=== PATIENT | female | born 1960 | race Caucasian/White ===

== ENCOUNTER 2020-05-30 14:15 | Outpatient (REF) | payer OTHER, SELFPAY ==
--- NOTE | 2020-05-30 14:20 | MM_ITS ---
EXAMINATION: MM SCREENING DIGITAL BREAST TOMOSYNTHESIS, BILATERAL CLINICAL INFORMATION: Screening. Asymptomatic. The lifetime risk of breast cancer based on the Tyrer-Cuzick Model is 7%. COMPARISON: Mammography: 05/18/2019, 05/12/2018, 05/07/2017 TECHNIQUE: Digital breast tomosynthesis is performed in both the craniocaudal and mediolateral oblique views along with computer-aided detection (CAD). Synthesized 2D images are generated from the tomosynthesis. FINDINGS: There are scattered areas of fibroglandular density (ACR BI-RADS breast composition Category b). There are no significant masses, abnormal calcifications, or other abnormalities. Parenchymal pattern is similar to prior exams. No developing density. No significant changes. MM/MM tomosynthesis screening BI IMPRESSION: No significant changes from prior studies. ASSESSMENT: BI-RADS 1: Negative RECOMMENDATION: Routine annual mammography screening. This patient's information was entered into a reminder system with a target due date for their next mammogram.
== END 2020-05-30 14:16 | disposition home or self-care (01) ==
LOC: HO.MAMMO 14:15
PROVIDERS: Visit Provider Internal Medicine
DX: Z12.31 Encounter for screening mammogram for malignant neoplasm of breast (principal)
CPT/HCPCS: 77063; 77067

== ENCOUNTER 2020-09-21 10:53 | Outpatient (REF) | payer OTHER, SELFPAY ==
[2020-09-24 01:07] LABS: HPV mRNA E6/E7 rflx Not Detected (Not Detected)
== END 2020-09-21 10:54 | disposition home or self-care (01) ==
LOC: HO.LAB 10:53
PROVIDERS: PCP Internal Medicine; Visit Provider Advanced Practice Midwife
DX: Z01.419 Encounter for gynecological examination (general) (routine) without abnormal findings (principal); Z11.51 Encounter for screening for human papillomavirus (HPV); N95.0 Postmenopausal bleeding
CPT/HCPCS: 87624; 88142

== ENCOUNTER 2020-09-27 14:47 | Outpatient (REF) | payer OTHER, SELFPAY ==
--- NOTE | ~2020-09-27 | US_ITS ---
EXAMINATION: PELVIC ULTRASOUND CLINICAL INFORMATION: Postmenopausal bleeding COMPARISON: None TECHNIQUE: Transabdominal and transvaginal pelvic ultrasound was performed. Transvaginal exam was performed for better visualization of the uterus and ovaries. FINDINGS: The uterus is retroverted and measures 6.7 x 3.4 x 4.3 cm in dimension. No focal uterine lesion is seen. Endometrial thickness is normal measuring 0.3 cm. There is a nabothian cyst in the cervix. The ovaries are normal-appearing. The right ovary measures 1.8 x 0.6 x 1.2 cm and the left ovary measures 2.7 x 0.9 x 1.1 cm. There is no fluid in the pelvis. US/US pelvic and transvaginal IMPRESSION: Unremarkable exam.
== END 2020-09-27 14:48 | disposition home or self-care (01) ==
LOC: HO.US 14:47
PROVIDERS: PCP Internal Medicine; Visit Provider Advanced Practice Midwife
DX: N95.0 Postmenopausal bleeding (principal)
CPT/HCPCS: 76830; 76856

== ENCOUNTER → 2020-10-11 09:53 | Outpatient (BNVA) | payer OTHER, SELFPAY | PROVIDERS: PCP Internal Medicine; Visit Provider Advanced Practice Midwife | DX: N93.9 Abnormal uterine and vaginal bleeding, unspecified (principal) | CPT/HCPCS: 58100 ==

== ENCOUNTER 2020-12-01 07:04 | Outpatient (REF) | payer OTHER, SELFPAY ==
[2020-12-01 11:28] LABS: Hematocrit 41.1 % (37-47); Hemoglobin 13.3 g/dl (12.0-16.0)
[2020-12-01 11:50] LABS: Alanine Aminotransferase 22 U/L (0-31); Alkaline Phosphatase 54 U/L (39-117); Anion Gap 11 (12-20); Aspartate Amino Transferase 21 U/L (5-31); Bilirubin Total 0.7 mg/dL (0.0-1.0); Blood Urea Nitrogen 19 mg/dL (9-16); Calcium 8.8 mg/dL (8.4-10.2); Carbon Dioxide 26 mmol/L (22-29); Chloride 109 mmol/L (96-108); Cholesterol 205 mg/dL; Estimated Glomerular Filt Rate > 60; Glucose Fasting 89 mg/dL (60-99); HDL Cholesterol 42 mg/dL; LDL Cholesterol Calculated 146 mg/dl; Potassium 4.3 mmol/L (3.3-5.1); Sodium 142 mmol/L (135-145); Total Protein 6.3 g/dL (6.5-8.0); Triglycerides 88 mg/dL
[2020-12-01 12:12] LABS: TSH reflex Free T4 0.55 uIU/mL (0.32-4.0)
== END 2020-12-01 07:05 | disposition home or self-care (01) ==
LOC: HO.HMGCLDS 07:04
PROVIDERS: PCP Internal Medicine; Visit Provider Internal Medicine
DX: E03.8 Other specified hypothyroidism (principal); E78.9 Disorder of lipoprotein metabolism, unspecified
CPT/HCPCS: 36415; 80053; 80061; 84443; 85014; 85018

== ENCOUNTER 2021-06-13 14:20 | Outpatient (REF) | payer OTHER, SELFPAY ==
--- NOTE | ~2021-06-13 | MM_ITS ---
EXAMINATION: MM SCREENING DIGITAL BREAST TOMOSYNTHESIS, BILATERAL CLINICAL INFORMATION: Screening. Asymptomatic. The lifetime risk of breast cancer based on the Tyrer-Cuzick Model is 13%. COMPARISON: Mammography: 05/30/2020, 05/18/2019, 05/12/2018 TECHNIQUE: Digital breast tomosynthesis is performed in both the craniocaudal and mediolateral oblique views along with computer-aided detection (CAD). Synthesized 2D images are generated from the tomosynthesis. FINDINGS: There are scattered areas of fibroglandular density (ACR BI-RADS breast composition Category b). There are no significant masses, abnormal calcifications, or other abnormalities. MM/MM tomosynthesis screening BI IMPRESSION: No mammographic evidence of malignancy. ASSESSMENT: BI-RADS 1: Negative RECOMMENDATION: Routine annual mammography screening. This patient's information was entered into a reminder system with a target due date for their next mammogram.
== END 2021-06-13 14:21 | disposition home or self-care (01) ==
LOC: HO.MAMMO 14:20
PROVIDERS: Visit Provider Internal Medicine
DX: Z12.31 Encounter for screening mammogram for malignant neoplasm of breast (principal)
CPT/HCPCS: 77063; 77067

== ENCOUNTER 2021-07-18 07:04 | Outpatient (REF) | payer OTHER, SELFPAY ==
[2021-07-18 12:16] LABS: TSH reflex Free T4 0.61 uIU/mL (0.32-4.0)
[2021-07-18 12:25] LABS: Alanine Aminotransferase 20 U/L (0-31); Albumin Level 4.1 g/dL (3.5-5.0); Alkaline Phosphatase 55 U/L (39-117); Anion Gap 9 (12-20); Aspartate Amino Transferase 21 U/L (5-31); Bilirubin Total 0.8 mg/dL (0.0-1.0); Blood Urea Nitrogen 18 mg/dL (9-16); Calcium 9.3 mg/dL (8.4-10.2); Carbon Dioxide 29 mmol/L (22-29); Chloride 107 mmol/L (96-108); Cholesterol 207 mg/dL; Estimated Glomerular Filt Rate > 60; Glucose Random 95 mg/dL (60-115); HDL Cholesterol 42 mg/dL; LDL Cholesterol Calculated 145 mg/dl; Potassium 4.8 mmol/L (3.3-5.1); Sodium 140 mmol/L (135-145); Total Protein 6.6 g/dL (6.5-8.0); Triglycerides 104 mg/dL
== END 2021-07-18 07:05 | disposition home or self-care (01) ==
LOC: HO.HMGCLDS 07:04
PROVIDERS: Visit Provider Internal Medicine
DX: E03.9 Hypothyroidism, unspecified (principal); E78.9 Disorder of lipoprotein metabolism, unspecified
CPT/HCPCS: 36415; 80053; 80061; 84443

== ENCOUNTER → 2021-10-13 15:04 | Outpatient (BNVA) | payer OTHER, SELFPAY | PROVIDERS: Visit Provider Advanced Practice Midwife | DX: Z13.89 Encounter for screening for other disorder (principal) ==

== ENCOUNTER 2022-06-19 14:20 | Outpatient (REF) | payer OTHER, SELFPAY ==
--- NOTE | ~2022-06-19 | MM_ITS ---
EXAMINATION: MM SCREENING DIGITAL BREAST TOMOSYNTHESIS, BILATERAL CLINICAL INFORMATION: Screening. Asymptomatic. The lifetime risk of breast cancer based on the Tyrer-Cuzick Model is 13%. COMPARISON: Mammography: 06/13/2021, 05/30/2020, 05/18/2019 TECHNIQUE: Digital breast tomosynthesis is performed in both the craniocaudal and mediolateral oblique views along with computer-aided detection (CAD). Synthesized 2D images are generated from the tomosynthesis. FINDINGS: There are scattered areas of fibroglandular density (ACR BI-RADS breast composition Category b). There are no significant masses, abnormal calcifications, or other abnormalities. Parenchymal pattern is similar to prior studies and there is no developing density or architectural abnormality. The axilla and skin contours are unremarkable. No significant changes. MM/MM tomosynthesis screening BI IMPRESSION: No mammographic evidence of malignancy. ASSESSMENT: BI-RADS 1: Negative RECOMMENDATION: Routine annual mammography screening. This patient's information was entered into a reminder system with a target due date for their next mammogram.
== END 2022-06-19 14:21 | disposition home or self-care (01) ==
LOC: HO.MAMMO 14:20
PROVIDERS: PCP Internal Medicine; Visit Provider Advanced Practice Midwife
DX: Z12.31 Encounter for screening mammogram for malignant neoplasm of breast (principal)
CPT/HCPCS: 77063; 77067

== ENCOUNTER 2022-08-10 10:32 | Outpatient (REF) | payer OTHER, SELFPAY ==
[2022-08-10 11:26] LABS: MANUAL DIFF FLAG NO
[2022-08-10 11:50] LABS: Basophils Percent Auto 0.7 % (0-2); Eosinophils Absolute Auto 0.1 X10*3/uL (0.0-0.4); Eosinophils Percent Auto 1.9 % (0-4); Hematocrit 42.8 % (37.0-47.0); Hemoglobin 14.2 g/dl (12.0-16.0); Imm Gran Abs Auto 0.02 X10*3/uL (0.00-0.03); Imm Gran Pct Auto 0.3 % (0.0-0.4); Lymphocytes Absolute Auto 1.5 X10*3/uL (1.2-4.9); Lymphocytes Percent Auto 26.1 % (20-40); Mean Corpuscular HGB Conc 33.2 g/dl (31.0-35.0); Mean Corpuscular Hemoglobin 30.3 pg (27.0-33.0); Mean Corpuscular Volume 91.3 fL (80.0-98.0); Mean Platelet Volume 10.4 fL (9.4-12.3); Monocytes Absolute Auto 0.3 X10*3/uL (0.1-1.2); Monocytes Percent Auto 5.4 % (2-11); Neutrophils Absolute Auto 3.8 x10*3/uL (2.0-8.3); Neutrophils Percent Auto 65.6 % (45-73); Platelet Count 264 X10*3/uL (160-400); Red Blood Count 4.69 X10*6/uL (4.20-5.50); Red Cell Distribution Width 13.4 % (11.0-16.0); White Blood Count 5.7 X10*3/uL (4.8-10.8)
[2022-08-10 12:19] LABS: Alanine Aminotransferase 24 U/L (0-31); Albumin Level 4.2 g/dL (3.5-5.0); Alkaline Phosphatase 63 U/L (39-117); Anion Gap 8 (12-20); Aspartate Amino Transferase 23 U/L (5-31); Blood Urea Nitrogen 11 mg/dL (9-16); Calcium 8.9 mg/dL (8.4-10.2); Carbon Dioxide 27 mmol/L (22-29); Chloride 108 mmol/L (96-108); Estimated Glomerular Filt Rate > 60; Glucose Random 88 mg/dL (60-115); Potassium 4.2 mmol/L (3.3-5.1); Sodium 139 mmol/L (135-145); Total Protein 6.7 g/dL (6.5-8.0)
[2022-08-11 13:44] LABS: LDL Cholesterol Direct 150 mg/dL (<100)
== END 2022-08-10 10:33 | disposition home or self-care (01) ==
LOC: HO.HMGCLDS 10:32
PROVIDERS: PCP Internal Medicine; Visit Provider Internal Medicine
DX: Z00.01 Encounter for general adult medical examination with abnormal findings (principal); E03.8 Other specified hypothyroidism; M06.9 Rheumatoid arthritis, unspecified; B00.1 Herpesviral vesicular dermatitis
CPT/HCPCS: 36415; 80053; 83721; 84443; 85025

== ENCOUNTER → 2022-10-19 07:58 | Outpatient (BNVA) | payer OTHER, SELFPAY | PROVIDERS: PCP Internal Medicine; Visit Provider Advanced Practice Midwife ==

== ENCOUNTER 2023-06-24 14:09 | Outpatient (REF) | payer OTHER, SELFPAY | END 2023-06-24 14:10 | disposition home or self-care (01) | LOC: HO.MAMMO 14:09 | PROVIDERS: PCP Internal Medicine; Visit Provider Internal Medicine | DX: Z12.31 Encounter for screening mammogram for malignant neoplasm of breast (principal) | CPT/HCPCS: 77063; 77067 ==

== ENCOUNTER → 2023-06-24 14:30 | Outpatient (BNV) | payer OTHER, SELFPAY | PROVIDERS: PCP Internal Medicine; Visit Provider Radiology Diagnostic Radiology | DX: Z12.31 Encounter for screening mammogram for malignant neoplasm of breast (principal) | CPT/HCPCS: 77063; 77067 ==

== ENCOUNTER 2023-08-16 07:56 | Outpatient (AMB) | payer OTHER, SELFPAY ==
[2023-08-16 08:00] VITALS: BP 120/72; PULSE 75; O2SAT 96; BMI 24.8
--- NOTE | 2023-08-16 08:00 | MHC.PC.OV ---
Vital Signs 08/16/23 08:00 Height 5 ft 5 in Weight 149 lb BMI 24.8 BP 120/72 Blood Pressure Location Rt brachial Position Sitting Pulse 75 Pulse Source Pulse Oximeter Pulse Oximetry (%) 96 Oxygen Delivery Method Room Air Intake Visit Reasons: PE Intake Note: Pt is here today for PE. Allergies penicillin V Allergy (Unknown, Verified 08/16/23 08:02) rash celecoxib [Celebrex] Adverse Reaction (Unknown, Verified 08/16/23 08:02) heart palpitations Medication List - Last Reconciled 08/16/23 by Krys Montoya MD folic acid 1 mg PO DAILY levothyroxine 88 mcg PO QAM 90 days methotrexate sodium 20 mg PO QWEEK Proair Digihaler 90 mcg/actuation (albuterol sulfate) 1 inh inhalation Q4-6H PRN NS tofacitinib ER 11 mg PO DAILY valacyclovir 500 mg PO DAILY 90 days Tobacco use date assessed: 08/16/23 Dental Screening Dental Screen Date: 08/16/23 Did you have a dental visit in the last 12 months?: Yes Did you have a dental problem in the last 6 months where you did not have access to dental care?: No Was dental information given to patient?: Patient has dentist HPI PE HPI Details Patient is a 63-year-old female came in today for a physical examination. patient have an OBGYN, breast exams through them. Colonoscopy was January of 2020 [address] [facility] Dr[address] Titus, next will be 2029 Mammogram is up-to-date Lipid disorder: LDL was 150 last time checked, she is due for thyroid test I have added lipids as well Patient have urinary incontinence she had a sling procedure done which worked initially but then it stopped working, medications are not helping. Actinic keratoses: Patient have a entry level and she goes once a year for follow-up. Rheumatoid arthritis treatment by Dr. Hanks had [facility] Left ear tympanic membrane slightly dull, patient does have allergies seems like she has developed fluid behind tympanic membrane I would recommend to start antihistamine Follow-up 6 months for hypothyroidism [facility] Medical History Rheumatoid arthritis Hypothyroid Surgical History Status post creation of urethral sling by suprapubic approach Family History Sister Breast cancer Social History Housing: House Alcohol intake: current Patient Tobacco Use Status: Never used Tobacco e-Cigarette/Vaping Use: Never Used Current occupational status: employed 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 Massimo Montgomery, Dayna Anderson, Jermaine Mcdaniel and colleagues, with an educational aj from [employer]. Review of Systems Const Denies chills, Denies fever(s) and Denies headache(s) Eyes Denies blurry vision ENT Denies headache(s), Denies nasal discharge, Denies nasal obstruction, Denies odynophagia and Denies sinus pain Card Denies chest pain at rest and Denies chest pain with activity Resp Denies cough and Denies hemoptysis GI Denies diarrhea, Denies odynophagia, Denies vomiting and Denies hematemesis Reports as per HPI Musc Denies abnormal gait Skin/Breast Reports as per HPI Neuro Denies Neuro-related abnormal movements, Denies Abnormal speech present, Denies abnormal gait, Denies headache(s) and Denies Sensory deficit (Neuro) Psych Denies mood swings and Denies paranoia Endo Reports as per HPI Iglesia/Lymph Reports as per HPI Aller/Immun Reports as per HPI Physical exam (Primary Care) Vital Signs: Last Vital Signs Pulse 75 08/16/23 08:00 BP 120/72 08/16/23 08:00 Pulse Ox 96 08/16/23 08:00 Oxygen Delivery Method Room Air 08/16/23 08:00 BMI result Body Mass Index 24.8 Tobacco/Smoking Status: Tobacco use Status Tobacco use date assessed 08/16/23 08/16/23 08:03 Patient Tobacco Use Status Never used Tobacco 08/16/23 08:03 e-Cigarette/Vaping Use Never Used 08/16/23 08:03 Thrive Assessment: Date of Thrive Assessment Date Thrive assessed 08/10/22 08/16/23 08:03 Const General: cooperative, comfortable and no acute distress Orientation/consciousness: patient oriented x3 HENMT Other: Left ear with slight dullness to light reflex Head: Yes normocephalic and Yes atraumatic Eyes General: appearance normal, both eyes and all related structures Pupils: Equal, round and reactive pupils present EOM: EOMs intact bilaterally Neck Neck: Yes supple and No lymphadenopathy Thyroid: Thyroid normal Lymphatic: no lymphadenopathy noted Resp Effort & Inspection: normal respiratory effort and able to speak in complete sentences Auscultation: clear to auscultation bilaterally Cardio Heart sounds: S1 normal heart sound present and S2 normal heart sound present GI Palpation (GI): Soft to palpation and nontender Auscultation: normal bowel sounds General: Yes no CVA tenderness Back/Spine/Pelvis Back: no CVA tenderness Skin General skin exam: elasticity normal and turgor normal Neuro General: patient oriented x3 and gait normal Cranial nerves: Yes Equal, round and reactive pupils present Speech: No Abnormal speech present Sensory Exam: No Sensory deficit (Neuro) Coordination: tandem gait normal and Romberg test negative Extrem General: Yes normal exam except as noted and No edema Assessment and Plan Assessment & Plan (1) Encounter for general adult medical examination with abnormal findings: Code(s): Z00.01 - Encounter for general adult medical examination with abnormal findings (2) Lipid disorder: Code(s): E78.9 - Disorder of lipoprotein metabolism, unspecified (3) Other specified hypothyroidism: Code(s): E03.8 - Other specified hypothyroidism (4) Urine incontinence: Code(s): R32 - Unspecified urinary incontinence Qualifiers: Urinary Incontinence type: unspecified incontinence Qualified Code(s): R32 - Unspecified urinary incontinence (5) Actinic keratosis: Code(s): L57.0 - Actinic keratosis (6) Rheumatoid arthritis: Code(s): M06.9 - Rheumatoid arthritis, unspecified Qualifiers: Rheumatoid arthritis location: multiple sites Rheumatoid factor presence: with rheumatoid factor Qualified Code(s): M05.79 - Rheumatoid arthritis with rheumatoid factor of multiple sites without organ or systems involvement (7) Intermittent asthma: Code(s): J45.20 - Mild intermittent asthma, uncomplicated Qualifiers: Asthma complication type: uncomplicated Asthma severity: mild Qualified Code(s): J45.20 - Mild intermittent asthma, uncomplicated Plan Patient is a 63-year-old female came in today for a physical examination. patient have an OBGYN, breast exams through them. Colonoscopy was January of 2020 at [facility] Dr. Titus, next will be 2029 Mammogram is up-to-date Lipid disorder: LDL was 150 last time checked, she is due for thyroid test I have added lipids as well Patient have urinary incontinence she had a sling procedure done which worked initially but then it stopped working, medications are not helping. Actinic keratoses: Patient have a entry level and she goes once a year for follow-up. Rheumatoid arthritis treatment by Dr. Hanks had rheumatoid arthritis center Left ear tympanic membrane slightly dull, patient does have allergies seems like she has developed fluid behind tympanic membrane I would recommend to start antihistamine Follow-up 6 months for hypothyroidism Orders: Orders Lipid Panel Today E78.9 - Disorder of lipoprotein metabolism, unspecified TSH reflex Free T4 Today E03.8 - Other specified hypothyroidism, E78.9 - Disorder of lipoprotein metabolism, unspecified, J45.20 - Mild intermittent asthma, uncomplicated, L57.0 - Actinic keratosis, M06.9 - Rheumatoid arthritis, unspecified, R32 - Unspecified urinary incontinence, Z00.01 - Encounter for general adult medical examination with abnormal findings Liver Panel Today E78.9 - Disorder of lipoprotein metabolism, unspecified Coding Level of Care Code Est Pt Prev Care 40-64y(73462) Diagnoses Encounter for general adult medical examination with abnormal findings Z00.01 Lipid disorder E78.9 Other specified hypothyroidism E03.8 Urinary incontinence, unspecified type R32 Urinary Incontinence type: unspecified incontinence Actinic keratosis L57.0 Rheumatoid arthritis involving multiple sites with positive rheumatoid factor M05.79 Rheumatoid arthritis location: multiple sites Rheumatoid factor presence: with rheumatoid factor Mild intermittent asthma without complication J45.20 Asthma complication type: uncomplicated Asthma severity: mild
== END 2023-08-16 08:18 | disposition home or self-care (01) ==
PROVIDERS: Visit Provider Internal Medicine
DX: Z00.00 Encounter for general adult medical examination without abnormal findings (principal); M05.79 Rheumatoid arthritis with rheumatoid factor of multiple sites without organ or systems involvement; E78.9 Disorder of lipoprotein metabolism, unspecified; E03.8 Other specified hypothyroidism; R32 Unspecified urinary incontinence; L57.0 Actinic keratosis; J45.20 Mild intermittent asthma, uncomplicated
CPT/HCPCS: 99396

== ENCOUNTER 2023-08-16 08:19 | Outpatient (REF) | payer OTHER, SELFPAY ==
[2023-08-16 11:45] LABS: Alanine Aminotransferase 28 U/L (0-31); Alkaline Phosphatase 74 U/L (39-117); Aspartate Amino Transferase 21 U/L (5-31); Bilirubin Direct 0.1 mg/dL (0.0-0.5); Bilirubin Total 0.5 mg/dL (0.0-1.0); Cholesterol 209 mg/dL (<200); HDL Cholesterol 42 mg/dL (>40); LDL Cholesterol Calculated 146 mg/dL (<100); Triglycerides 108 mg/dL (<150)
[2023-08-16 12:04] LABS: TSH reflex Free T4 4.14 uIU/mL (0.32-4.0)
[2023-08-16 12:46] LABS: Free T4 (Free Thyroxine) 1.02 ng/dL (0.71-1.85)
== END 2023-08-16 08:20 | disposition home or self-care (01) ==
LOC: HO.HMGCLDS 08:19
PROVIDERS: PCP Internal Medicine; Visit Provider Internal Medicine
DX: Z00.01 Encounter for general adult medical examination with abnormal findings (principal); E03.8 Other specified hypothyroidism; R32 Unspecified urinary incontinence; L57.0 Actinic keratosis; M06.9 Rheumatoid arthritis, unspecified; J45.20 Mild intermittent asthma, uncomplicated; E78.9 Disorder of lipoprotein metabolism, unspecified
CPT/HCPCS: 36415; 80061; 80076; 84439; 84443

== ENCOUNTER → 2023-08-16 10:04 | Outpatient (BNVA) | payer OTHER, SELFPAY | PROVIDERS: PCP Internal Medicine; Visit Provider Internal Medicine | DX: S80.02XA Contusion of left knee, initial encounter (principal); W01.0XXA Fall on same level from slipping, tripping and stumbling without subsequent striking against object, initial encounter | CPT/HCPCS: 99203 ==

== ENCOUNTER 2023-10-25 07:53 | Outpatient (AMB) | payer OTHER, SELFPAY ==
--- NOTE | 2023-10-25 07:58 | A.OFFVIS_ITS ---
Vital Signs 10/25/23 07:59 Height 5 ft 5 in Weight 147 lb 11.355 oz BMI 24.6 BP 118/70 Intake Visit Reasons: DEPUTY CHIEF MAGISTRATE annual exam Thread Reeler Required: No Information Interpreted: non-clinical & clinical Irrigation Specialist: Irrigation Specialist Present (Beatrice RAINEY) Accompanied by: Self / Same As Patient Allergies penicillin V Allergy (Unknown, Verified 10/25/23 08:03) rash celecoxib [Celebrex] Adverse Reaction (Unknown, Verified 10/25/23 08:03) heart palpitations Post menopausal: Yes HPI Comments Details: She is a postmenopausal woman presenting for her annual wire tinner examination. She is doing well with no concerns. Attempting to eat a healthy diet with calcium and vitamin D and stays active with exercise. Currently sexually active. Denies any irritation. Admits to vaginal dryness. Last pap smear; 2020. Last mammogram; 2023. Colonoscopy is UTD. Family history of breast cancer, sister. 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 Cognitive needs: No Hearing needs: No Vision needs: No Female Reproductive History Menstrual Age of Menarche: 16 Menopause type: natural Total pregnancies: 2 Full term: 2 Number of Living Children: 2 Date of last pap smear: 09/22/20 Date of Mammogram: 06/24/23 Review of Systems Const All systems reviewed & are unremarkable except as noted in HPI and below Reports as per HPI Eyes Reports no additional complaints ENT Reports no additional complaints Card Reports no additional complaints Resp Reports no additional complaints GI Reports as per HPI and Reports no additional complaints Reports as per HPI Musc Reports no additional complaints Skin/Breast Reports as per HPI Neuro Reports no additional complaints Psych Reports no additional complaints Endo Reports no additional complaints Iglesia/Lymph Reports no additional complaints Aller/Immun Reports no additional complaints Physical Exam Vital Signs: Last Vital Signs BP 118/70 10/25/23 07:59 BMI result Body Mass Index 24.6 Const General: cooperative, healthy appearing, no acute distress, well developed and alert Orientation/consciousness: patient oriented x3 HEENT Head: Yes normal to inspection Eyes General: appearance normal, both eyes and all related structures Neck Neck: Yes normal visual inspection Thyroid: Thyroid normal Chest Chest palpation & inspection: normal inspection of the chest and other (no puckering, dimpling, peau de orange, retraction, discharge, masses) Breast/axilla inspection: normal inspection of the breasts Breast/axilla palpation: normal palpation of the breasts Resp Effort & Inspection: normal respiratory effort GI Inspection: Yes normal to inspection Palpation (GI): Soft to palpation Rectal Exam - Female: deferred General: Yes bladder normal to palpation External Female Exam: normal external appearance and normal appearance of the urethra Speculum Exam - Vagina: normal appearance of the vagina, normal palpation, normal vaginal discharge and vagina atrophic Speculum Exam - Cervix: normal appearance of the cervix and normal palpation Bimanual exam- vagina & uterus: normal bimanual exam, normal palpation, uterine size normal, bladder normal to palpation, normal palpation and non-tender Bimanual Exam- Adnexa, other: no masses Skin General skin exam: no rashes or lesions noted Rashes: no rashes Neuro General: patient oriented x3 Cognition (Neuro): normal cognition Extrem General: Yes normal to inspection Psych Attitude: cooperative Thought process: Normal thought process present Assessment & Plan Assessment & Plan (1) Encounter for well woman exam with routine gynecological exam: Code(s): Z01.419 - Encounter for gynecological examination (general) (routine) without abnormal findings Category: Medical Plan Discussed: Current recommendations for pap smears per ASCCP guidelines. Breast awareness, periodic self breast exams and yearly mammogram. Maintain a healthy lifestyle, well balanced diet including Calcium 1,200 mg and Vitamin D 600 IU daily, and routine exercise. Replens moisturizer and lubricant. Follow up as needed for vaginal dryness concerns. Contact the office with any postmenopausal bleeding. Patient verbalizes understanding and agrees to the plan of care. She was given opportunity to ask questions and all questions were answered to the best of my ability. RTO in 1 year for annual wire tinner exam. This note is constructed using voice recognition software. While every effort has been made to ensure accuracy, ui developer with angular js errors may have been included. Coding Level of Care Code Est Pt Prev Care 40-64y(35458) Diagnoses Encounter for well woman exam with routine gynecological exam Z01.419
[2023-10-25 07:59] VITALS: BP 118/70; BMI 24.6
== END 2023-10-25 09:22 | disposition home or self-care (01) ==
PROVIDERS: Visit Provider Advanced Practice Midwife
DX: Z01.419 Encounter for gynecological examination (general) (routine) without abnormal findings (principal)
CPT/HCPCS: 99396

== ENCOUNTER → 2023-10-25 07:53 | Outpatient (BNVA) | payer OTHER, SELFPAY | PROVIDERS: Visit Provider Advanced Practice Midwife ==

== ENCOUNTER 2024-02-14 07:59 | Outpatient (REF) | payer OTHER, SELFPAY ==
[2024-02-14 09:59] LABS: MANUAL DIFF FLAG NO
[2024-02-14 10:10] LABS: Basophils Percent Auto 0.6 % (0-2); Eosinophils Absolute Auto 0.2 X10*3/uL (0.0-0.4); Eosinophils Percent Auto 3.4 % (0-4); Hematocrit 43.3 % (37.0-47.0); Hemoglobin 14.2 g/dl (12.0-16.0); Imm Gran Abs Auto 0.01 X10*3/uL (0.00-0.03); Imm Gran Pct Auto 0.2 % (0.0-0.4); Lymphocytes Absolute Auto 1.5 X10*3/uL (1.2-4.9); Lymphocytes Percent Auto 32.8 % (20-40); Mean Corpuscular HGB Conc 32.8 g/dl (31.0-35.0); Mean Corpuscular Hemoglobin 29.8 pg (27.0-33.0); Monocytes Absolute Auto 0.3 X10*3/uL (0.1-1.2); Monocytes Percent Auto 6.2 % (2-11); Neutrophils Absolute Auto 2.6 x10*3/uL (2.0-8.3); Neutrophils Percent Auto 56.8 % (45-73); Platelet Count 256 X10*3/uL (160-400); Red Blood Count 4.76 X10*6/uL (4.20-5.50); Red Cell Distribution Width 13.5 % (11.0-16.0); White Blood Count 4.7 X10*3/uL (4.8-10.8)
[2024-02-14 10:37] LABS: Alanine Aminotransferase 31 U/L (0-31); Alkaline Phosphatase 66 U/L (39-117); Anion Gap 8 (12-20); Aspartate Amino Transferase 29 U/L (5-31); Bilirubin Total 0.7 mg/dL (0.0-1.0); Blood Urea Nitrogen 14 mg/dL (9-16); Calcium 9.1 mg/dL (8.4-10.2); Carbon Dioxide 26 mmol/L (22-29); Chloride 110 mmol/L (96-108); Estimated Glomerular Filt Rate > 60; Glucose Random 107 mg/dL (60-115); Potassium 3.9 mmol/L (3.3-5.1); Sodium 140 mmol/L (135-145); Total Protein 6.9 g/dL (6.5-8.0)
[2024-02-14 10:54] LABS: Ferritin 111 ng/mL (10-250); TSH reflex Free T4 1.01 uIU/mL (0.32-4.0)
[2024-02-14 10:56] LABS: Vitamin B12 390 pg/mL (200-900)
[2024-02-16 10:33] LABS: LDL Cholesterol Direct 170 mg/dL (<100)
[2024-02-20 15:13] LABS: Vitamin D 25-OH, D2 5 ng/mL; Vitamin D 25-OH, D3 21 ng/mL; Vitamin D 25-OH, Total 26 ng/mL (30-100)
== END 2024-02-14 08:00 | disposition home or self-care (01) ==
LOC: HO.HMGCLDS 07:59
PROVIDERS: PCP Internal Medicine; Visit Provider Internal Medicine
DX: Z13.1 Encounter for screening for diabetes mellitus (principal); E03.8 Other specified hypothyroidism; E78.9 Disorder of lipoprotein metabolism, unspecified; R53.83 Other fatigue
CPT/HCPCS: 36415; 80053; 82306; 82607; 82728; 83721; 84443; 85025

== ENCOUNTER 2024-07-03 11:08 | Outpatient (REF) | payer OTHER, SELFPAY | END 2024-07-03 11:09 | disposition home or self-care (01) | LOC: HO.MAMMO 11:08 | PROVIDERS: PCP Internal Medicine; Visit Provider Internal Medicine | DX: Z12.31 Encounter for screening mammogram for malignant neoplasm of breast (principal) | CPT/HCPCS: 77063; 77067 ==

== ENCOUNTER 2024-08-21 07:54 | Outpatient (AMB) | payer OTHER, SELFPAY ==
[2024-08-21 08:10] VITALS: BP 114/76; PULSE 66; RESP 18; TEMP 36.8; O2SAT 96; BMI 23.5
--- NOTE | 2024-08-21 08:10 | A.OFFPC_ITS ---
Vital Signs 08/21/24 08:10 Height 5 ft 5 in Weight 141 lb BMI 23.5 BP 114/76 Blood Pressure Location Lt brachial Position Sitting Respiration 18 Pulse 66 Pulse Source Pulse Oximeter Temp 98.2 F Temp Source Oral Pulse Oximetry (%) 96 Oxygen Delivery Method Room Air Intake Visit Reasons: PE Allergies penicillin V Allergy (Unknown, Verified 08/21/24 08:12) rash cefdinir Allergy (Verified 08/21/24 08:12) Hives celecoxib [Celebrex] Adverse Reaction (Unknown, Verified 08/21/24 08:12) heart palpitations Medication List - Last Reconciled 08/21/24 by Krys Montoya MD folic acid 1 mg PO DAILY levothyroxine 88 mcg PO QAM 90 days methotrexate sodium 20 mg PO QWEEK Proair Digihaler 90 mcg/actuation (albuterol sulfate) 1 inh inhalation Q4-6H PRN NS tofacitinib ER 11 mg PO DAILY valacyclovir 500 mg PO DAILY 90 days Tobacco use date assessed: 08/21/24 Dental Screening Dental Screen Date: 08/21/24 Did you have a dental visit in the last 12 months?: Yes Did you have a dental problem in the last 6 months where you did not have access to dental care?: No Was dental information given to patient?: Patient has dentist HPI PE HPI Details History of Present Illness - The patient is a 64-year-old female pr esenting with a primary reason of physical exam and routine health maintenance. - Continues to manage rheumatoid arthrit is with unspecified current treatments under Dr. Hanks. - Reports persistently elevated choleste rol levels; LDL documented at 170 mg/dL. - The patient recognizes noncompliance w ith recommended vitamin D supplementation. - Developed bilateral ear infections las t May, with deafness in the left ear. Initial treatment with cefdinir resulted in an allergic reaction, amended with azithromycin therapy. - Reports residual eustachian tube dysfu nction, receiving antihistamine treatment for associated allergic rhinitis symptoms. - Normal mammogram confirmed in June; gynecological follow-up delayed, requiring rescheduling. - Reports a negative colonoscopy in 2019 ; follow-up is not due for 7 more years , performed by Dr. Titus Health Maintenance - Routine mammogram completed in June of this year; no abnormalities. - Scheduled gynecological visit overdue; last seen in October of previous year, requiring rescheduling. - Colonoscopy performed in 2020 at [facility], 10-year interval recommended given normal findings. By Dr. Titus - Recommendations for vitamin D and B12 supplementation discussed to address suboptimal levels. - repeat labs today [facility] Rheumatology under Dr. Hanks, [place]. - Gastroenterology follow-up pending, wi th prior colonoscopy administered by Dr. Titus. Patient Instructions - Continue antihistamine use for ear sym ptoms related to possible allergies. - Follow recommendations for vitamin D a nd B12 supplementation as advised. - Contact TRANSACTION MANAGER to schedule overdue sravanthi ointment. - Follow up on high cholesterol manageme nt and adhere to dietary guidelines provided. - Schedule and maintain routine [facility] appointments as per recommendations. Review of Systems - General: No fever no chills - Neurological: No headaches no dizzin ess - Ear nose throat: No sore throat no hearing difficulty no ear pain - Cardiovascular: No syncope, no chest pain, no palpitations - Gastrointestinal: No nausea vomiting or diarrhea - Endocrine: No polyuria polydipsia no heat intolerance - Genitourinary: No dysuria - Skin: No new complaints Physical Exam General: Cooperative, healthy appearing, comfortable, no acute distress Orientation: Patient oriented x3 Limitations: None Head: Normal to inspection Ears: Fluid present, popping and snapping, no infection Nose: Normal external nose present Face and sinus: Normal facial exam Eyes: Appearance normal, extraocular movement intact pupils reactive Neck: Normal visual inspection and supple Respiratory: Normal respiratory effort and able to speak in complete sentences. Clear to auscultation, no stridor Breast exam by OBGYN as per patient Cardiovascular: S1 and S2 GI: Normal to inspection. 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 1. Little interest or pleasure in doing things: not at all 2. Feeling down, depressed, or hopeless: not at all 3. Trouble falling or staying asleep, or sleeping too much: several days 4. Feeling tired or having little energy: several days 5. Poor appetite or overeating: several days 6. Feeling bad about yourself - or that you are a failure or have let yourself or your family down: not at all 7. Trouble concentrating on things, such as reading the newspaper or watching television: not at all 8. Moving or speaking so slowly that other people could have noticed. Or the opposite - being so fidgety or restless that you have been moving around a lot more than usual: not at all 9. Thoughts that you would be better off or of hurting yourself in some way: not at all Total score: 3 Depression Screening Interpretation: Negative Depression Screening Done: Yes 59022 - PHQ-9 Billing: Yes Source: Developed by Drs. Massimo Montgomery, Dayna Anderson, Jermaine Mcdaniel and colleagues, with an educational aj from [employer]. Thrive Questionnaire Date Thrive assessed: 08/21/24 I am a: Patient What is your living situation today?: I have a steady place to live Within the past 12 months, did the food you bought not last and you didn't have the money to get more?: Never true Within the past 12 months, did you worry whether your food would run out before you got money to buy more?: Never true Do you have trouble paying for medicines?: No Do you have trouble getting transportation to medical appointments?: No Do you have trouble paying your heating and electricity bill?: No Do you have trouble taking care of your child, family member or friend?: No Do you have trouble with day-to-day activities such as bathing, preparing meals, shopping, managing finances, etc.?: No Are you currently unemployed and looking for a job?: No Are you interested in more education?: No THRIVE Score: 0 AUDIT C Alcohol Use Questionnaire (AUDIT-C) 1. How often do you have a drink containing alcohol?: Never 3. How often do you have six or more drinks on one occasion?: Never Total Score: 0 COSTA-7 AMB Questionnaire COSTA-7 Date COSTA - 7 assessed: 08/21/24 Feeling nervous, anxious, or on edge: 0 = Not at all Not being able to stop or control worryin = Not at all Worrying too much about different things: 0 = Not at all Trouble relaxin = Not at all Being so restless that it is hard to sit still: 0 = Not at all Becoming easily annoyed or irritable: 0 = Not at all Feeling afraid as if something awful might happen: 0 = Not at all Total COSTA-7 score (0-4 normal; 5-9 mild; 10-14 moderate; 15-21 severe): 0 Source: Developed by Drs. Massimo Montgomery, Dayna Anderson, Jermaine Mcdaniel and colleagues, with an educational aj from [employer]. COSTA-7 Assessment Billing COSTA-7 Assessment Tool: COSTA-7 Assessment 91723 Physical exam (Primary Care) Vital Signs: Last Vital Signs Temp 98.2 F 08/21/24 08:10 Pulse 66 08/21/24 08:10 Resp 18 08/21/24 08:10 BP 114/76 08/21/24 08:10 Pulse Ox 96 08/21/24 08:10 Oxygen Delivery Method Room Air 08/21/24 08:10 BMI result Body Mass Index 23.5 Tobacco/Smoking Status: Tobacco use Status Tobacco use date assessed 08/21/24 08/21/24 08:17 Patient Tobacco Use Status Never used Tobacco 08/21/24 08:17 e-Cigarette/Vaping Use Never Used 08/21/24 08:17 PHQ-9: PHQ-9 Score PHQ-9: Total score 3 08/21/24 08:17 Depression Screening Interpretation: Negative Thrive Assessment: Date of Thrive Assessment Date Thrive assessed 08/21/24 08/21/24 08:17 Coding Level of Care Code Est Pt Level 3 (61696) Est Pt Prev Care 40-64y(06001) Diagnoses Encounter for general adult medical examination with abnormal findings Z00.01 Disorder of left eustachian tube H69.92 Laterality: left Rheumatoid arthritis involving multiple sites with positive rheumatoid factor M05.79 Rheumatoid arthritis location: multiple sites Rheumatoid factor presence: with rheumatoid factor Recurrent cold sores B00.1 Mild intermittent asthma without complication J45.20 Asthma complication type: uncomplicated Asthma severity: mild Lipid disorder E78.9 Other specified hypothyroidism E03.8 Additional Codes COSTA-7 Assessment Billing - COSTA-7 Assessment Tool: COSTA-7 Assessment 21599 ([id number]) PHQ-9 - 63689 - PHQ-9 Billing: Yes ([id number]) Assessment & Plan Assessment & Plan (1) Encounter for general adult medical examination with abnormal findings: Code(s): Z00.01 - Encounter for general adult medical examination with abnormal findings Category: Medical (2) Eustachian tube disorder: Code(s): H69.90 - Unspecified Eustachian tube disorder, unspecified ear Category: Medical Qualifiers: Laterality: left Qualified Code(s): H69.92 - Unspecified Eustachian tube disorder, left ear (3) Rheumatoid arthritis: Code(s): M06.9 - Rheumatoid arthritis, unspecified Category: Medical Qualifiers: Rheumatoid arthritis location: multiple sites Rheumatoid factor presence: with rheumatoid factor Qualified Code(s): M05.79 - Rheumatoid arthritis with rheumatoid factor of multiple sites without organ or systems involvement (4) Recurrent cold sores: Code(s): B00.1 - Herpesviral vesicular dermatitis Category: Medical (5) Intermittent asthma: Code(s): J45.20 - Mild intermittent asthma, uncomplicated Category: Medical Qualifiers: Asthma complication type: uncomplicated Asthma severity: mild Qualified Code(s): J45.20 - Mild intermittent asthma, uncomplicated (6) Lipid disorder: Code(s): E78.9 - Disorder of lipoprotein metabolism, unspecified Category: Medical (7) Other specified hypothyroidism: Code(s): E03.8 - Other specified hypothyroidism Category: Medical Plan History of Present Illness - The patient is a 64-year-old female presenting with a primary reason of physical exam and routine health maintenance. - Continues to manage rheumatoid arthritis with unspecified current treatments under Dr. Hanks. - Reports persistently elevated cholesterol levels; LDL documented at 170 mg/dL. - The patient recognizes noncompliance with recommended vitamin D supplementation. - Developed bilateral ear infections last May, with deafness in the left ear. Initial treatment with cefdinir resulted in an allergic reaction, amended with azithromycin therapy. - Reports residual eustachian tube dysfunction, receiving antihistamine t reatment for associated allergic rhinitis symptoms. - Normal mammogram confirmed in June; gynecological follow-up delayed, requiring rescheduling. - Reports a negative colonoscopy in 2019; follow-up is not due for 7 more years , performed by Dr. Titus Health Maintenance - Routine mammogram completed in June of this year; no abnormalities. - Scheduled gynecological visit overdue; last seen in October of previous year, requiring rescheduling. - Colonoscopy performed in 2019 at [facility], 10-year interval recommended given normal findings. By Dr. Titus - Recommendations for vitamin D and B12 supplementation discussed to address suboptimal levels. - repeat labs today [facility] - Rheumatology under Pre[facility] [place]. - Gastroenterology follow-up pending, with prior colonoscopy administered by Dr. Titus. Patient Instructions - Continue antihistamine use for ear symptoms related to possible allergies. - Follow recommendations for vitamin D and B12 supplementation as advised. - Contact TRANSACTION MANAGER to schedule overdue appointment. - Follow up on high cholesterol management and adhere to dietary guidelines provided. - Schedule and maintain routine preventative health appointments as per recommendations. Orders: Orders Complete Blood Count Auto Diff Today B00.1 - Herpesviral vesicular dermatitis, E03.8 - Other specified hypothyroidism, E78.9 - Disorder of lipoprotein metabolism, unspecified, J45.20 - Mild intermittent asthma, uncomplicated, M05.79 - Rheumatoid arthritis with rheumatoid factor of multiple sites without organ or systems involvement, Z00.01 - Encounter for general adult medical examination with abnormal findings Vitamin B12 Today B00.1 - Herpesviral vesicular dermatitis, E03.8 - Other specified hypothyroidism, E78.9 - Disorder of lipoprotein metabolism, unspecified, J45.20 - Mild intermittent asthma, uncomplicated, M05.79 - Rheumatoid arthritis with rheumatoid factor of multiple sites without organ or systems involvement, Z00.01 - Encounter for general adult medical examination with abnormal findings UA CC w/rflx Micro + Cult Today B00.1 - Herpesviral vesicular dermatitis, E03.8 - Other specified hypothyroidism, E78.9 - Disorder of lipoprotein metabolism, unspecified, J45.20 - Mild intermittent asthma, uncomplicated, M05.79 - Rheumatoid arthritis with rheumatoid factor of multiple sites without organ or systems involvement, Z00.01 - Encounter for general adult medical examination with abnormal findings Comprehensive [place]. Panel Fast Today B00.1 - Herpesviral vesicular dermatitis, E03.8 - Other specified hypothyroidism, E78.9 - Disorder of lipoprotein metabolism, unspecified, J45.20 - Mild intermittent asthma, uncomplicated, M05.79 - Rheumatoid arthritis with rheumatoid factor of multiple sites without organ or systems involvement, Z00.01 - Encounter for general adult medical examination with abnormal findings Lipid Panel Today B00.1 - Herpesviral vesicular dermatitis, E03.8 - Other specified hypothyroidism, E78.9 - Disorder of lipoprotein metabolism, unspecified, J45.20 - Mild intermittent asthma, uncomplicated, M05.79 - Rheumatoid arthritis with rheumatoid factor of multiple sites without organ or systems involvement, Z00.01 - Encounter for general adult medical examination with abnormal findings Vitamin D 25-OH (D2 and D3) Today B00.1 - Herpesviral vesicular dermatitis, E03.8 - Other specified hypothyroidism, E78.9 - Disorder of lipoprotein metabolism, unspecified, J45.20 - Mild intermittent asthma, uncomplicated, M05.79 - Rheumatoid arthritis with rheumatoid factor of multiple sites without organ or systems involvement, Z00.01 - Encounter for general adult medical examination with abnormal findings TSH reflex Free T4 Today B00.1 - Herpesviral vesicular dermatitis, E03.8 - Other specified hypothyroidism, E78.9 - Disorder of lipoprotein metabolism, unspecified, J45.20 - Mild intermittent asthma, uncomplicated, M05.79 - Rheuma toid arthritis with rheumatoid factor of multiple sites without organ or systems involvement, Z00.01 - Encounter for general adult medical examination with abnormal findings Medications: Refilled Proair Digihaler 90 mcg/actuation (albuterol sulfate) 1 inh inhalation Q4-6H PRN 1 ea 0RF shortness of breath or wheezing NS valacyclovir 500 mg PO DAILY 90 tabs 0RF 90 days
== END 2024-08-21 08:27 | disposition home or self-care (01) ==
PROVIDERS: PCP Internal Medicine; Visit Provider Internal Medicine
DX: Z00.00 Encounter for general adult medical examination without abnormal findings (principal); H69.92 Unspecified Eustachian tube disorder, left ear; M05.79 Rheumatoid arthritis with rheumatoid factor of multiple sites without organ or systems involvement; B00.1 Herpesviral vesicular dermatitis; J45.20 Mild intermittent asthma, uncomplicated; E78.9 Disorder of lipoprotein metabolism, unspecified; E03.8 Other specified hypothyroidism

== ENCOUNTER 2024-08-21 07:54 | Outpatient (REF) | payer OTHER, SELFPAY ==
[2024-08-21 10:01] LABS: MANUAL DIFF FLAG NO
[2024-08-21 10:02] LABS: Appearance Urine Clear; Color Urine Yellow; Glucose Urine UA Negative (Negative); Leukocyte Esterase Urine Negative (Negative); Nitrite Urine Negative (Negative); PH 7.5 (5.0-9.0); Specific Gravity - Urine 1.015 (1.005-1.025); Urine Blood Negative (Negative); Urine Ketones Negative (Negative); Urine Protein Negative (Neg-Trace)
[2024-08-21 10:21] LABS: Basophils Absolute Auto 0.1 X10*3/uL (0.0-0.2); Basophils Percent Auto 1.5 % (0-2); Eosinophils Absolute Auto 0.5 X10*3/uL (0.0-0.4); Eosinophils Percent Auto 8.8 % (0-4); Hematocrit 44.5 % (37.0-47.0); Hemoglobin 14.4 g/dl (12.0-16.0); Imm Gran Abs Auto 0.02 X10*3/uL (0.00-0.03); Imm Gran Pct Auto 0.4 % (0.0-0.4); Lymphocytes Absolute Auto 1.7 X10*3/uL (1.2-4.9); Lymphocytes Percent Auto 31.4 % (20-40); Mean Corpuscular HGB Conc 32.4 g/dl (31.0-35.0); Mean Corpuscular Hemoglobin 29.5 pg (27.0-33.0); Mean Corpuscular Volume 91.2 fL (80.0-98.0); Mean Platelet Volume 10.9 fL (9.4-12.3); Monocytes Absolute Auto 0.3 X10*3/uL (0.1-1.2); Monocytes Percent Auto 5.7 % (2-11); Neutrophils Absolute Auto 2.9 x10*3/uL (2.0-8.3); Neutrophils Percent Auto 52.2 % (45-73); Platelet Count 266 X10*3/uL (160-400); Red Blood Count 4.88 X10*6/uL (4.20-5.50); Red Cell Distribution Width 13.1 % (11.0-16.0); White Blood Count 5.5 X10*3/uL (4.8-10.8)
[2024-08-21 10:50] LABS: Alanine Aminotransferase 23 U/L (0-31); Alkaline Phosphatase 57 U/L (39-117); Anion Gap 10 (12-20); Aspartate Amino Transferase 26 U/L (5-31); Bilirubin Total 0.5 mg/dL (0.0-1.0); Blood Urea Nitrogen 14 mg/dL (9-16); Carbon Dioxide 27 mmol/L (22-29); Chloride 108 mmol/L (96-108); Cholesterol 201 mg/dL (<200); Estimated Glomerular Filt Rate > 60; Glucose Fasting 89 mg/dL (60-99); HDL Cholesterol 51 mg/dL (>40); LDL Cholesterol Calculated 139 mg/dL (<100); Potassium 4.2 mmol/L (3.3-5.1); Sodium 141 mmol/L (135-145); TSH reflex Free T4 1.64 uIU/mL (0.32-4.0); Total Protein 7.2 g/dL (6.5-8.0); Triglycerides 57 mg/dL (<150)
[2024-08-21 11:00] LABS: Vitamin B12 360 pg/mL (200-900)
[2024-08-26 19:28] LABS: Vitamin D 25-OH, D2 7 ng/mL; Vitamin D 25-OH, D3 25 ng/mL; Vitamin D 25-OH, Total 32 ng/mL (30-100)
== END 2024-08-21 07:55 | disposition home or self-care (01) ==
LOC: HO.HMGCLDS 07:54
PROVIDERS: PCP Internal Medicine; Visit Provider Internal Medicine
DX: Z00.01 Encounter for general adult medical examination with abnormal findings (principal); M05.79 Rheumatoid arthritis with rheumatoid factor of multiple sites without organ or systems involvement; B00.1 Herpesviral vesicular dermatitis; J45.20 Mild intermittent asthma, uncomplicated; E78.9 Disorder of lipoprotein metabolism, unspecified; E03.8 Other specified hypothyroidism; H69.92 Unspecified Eustachian tube disorder, left ear
CPT/HCPCS: 36415; 80053; 80061; 81003; 82306; 82607; 84443; 85025; 96127

== ENCOUNTER 2025-03-24 07:57 | Outpatient (AMB) | payer OTHER, SELFPAY ==
--- OUTSIDE RECORDS SUMMARY | 2023-05-28 15:03 | XMS_ITS | Encounter Summary ---
Author Organization [facility] Address [address] [place] [id number] Phone Care Team Providers Care Dairy Husbandman Name Role Phone Krys Montoya MD Primary Care Provider [phone] Encounter Details Date Type Department Care Team (Late st Contact Info) Description 05/28/2023 2:03 PM EST Hospital Encounter [facility] [address] [place] [id number] Lois Rodriguez FNP [address] [place] [phone] [email or web address] Social History Tobacco Use Types Packs/Day Years Used Date Smoking Tobacco: Never Smokeless Tobacco: Never Alcohol Use Standard Drinks/Week Comments Yes 2 (1 standard drink = 0.6 oz pur e alcohol) Occasional Education Answer Date Recorded Are you interested in more education? Not on delmer e 10/13/2022 Are you concerned about learning? Not on file 10/13/2022 No 10/13/2022 No 10/13/2022 Digital Access Answer Date Recorded No 11/13/2022 No 11/13/2022 Reliable internet access at home? Not on file 11/13/2022 Device with a working camera? Not on file Comments Unknown Sex and Gender Information Value Date Recorded Sex Assigned at Not on file Legal Sex Female 8:03 AM EDT Gender Identity Not on file Sexual Orientation Not on file documented as of this encounter Plan of Treatment Not on file documented as of this encounter Procedures Procedure Name Priority Date/Time Associated Diagnosis Comments XR CHEST PA AND LATERAL 2 VIEWS Urgent/patient waiting 05/28/2023 2:07 PM EST Influenza B COVID-19 documented in this encounter Results * XR CHEST PA AND LATERAL 2 VIEWS (05/28/2023 2:07 PM EST) Anatomical Region Laterality Modality Chest Computed Radiogr aphy 05/28/2023 2:16 PM EST Impressions 05/28/2023 2:16 PM EST Large amount of apical pleural thickening and nonspecific patchy opacities in the left upper lung. Findings could represent pneumonia in appropriate clinical setting. Recommend 4-6 week follow-up radiograph to ensure complete resolution and/or stability. The patient has no prior examinations available to establish stability Narrative 05/28/2023 2:16 PM EST XR CHEST PA AND LATERAL 2 VIEWS Referring clinician's provided indication for this examination in Epic: Cough; chest tightness, +flu and covid COMPARISON: None FINDINGS: Lungs: Large amount of apical pleural thickening and nonspecific patchy opacities in the left upper lung. Pleura: No pleural effusion. No pneumothorax Heart/Mediastinum: Heart size normal. Bones/Soft Tissues: No acute finding Procedure Note Gutierrez Smith MD, CINTHIA - 05/28/2023 XR CHEST PA AND LATERAL 2 VIEWS Referring clinician's provided indication for this examination in Epic:Cough; chest tightness, +flu and covid COMPARISON: None FINDINGS: Lungs: Large amount of apical pleural thickening and nonspecific patchyopacities in the left upper lung. Pleura: No pleural effusion. No pneumothorax Heart/Mediastinum: Heart size normal. Bones/Soft Tissues: No acute finding IMPRESSION: Large amount of apical pleural thickening and nonspecific patchy opacitiesin the left upper lung. Findings could represent pneumonia in appropriate clinical setting. Recommend 4-6 week follow-up radiograph to ensure complete resolutionand/or stability. The patient has no prior examinations available toestablish stability us Lois Rodriguez PONY ROUGHER IMG XR CHEST Final Resul t documented in this encounter Visit Diagnoses Not on filedocumented in this encounter Additional Health Concerns Infection Onset Date Last Indicated Resolved Time COVID-19 05/28/2023 05/28/2023 06/18/2023 1:22 AM EST Influenza B 05/28/2023 05/28/2023 06/04/2023 1:22 AM EST documented as of this encounter Care Teams Dairy Husbandman Relationship Specialty Start Date End Date Krys Montoya MD [facility] [place] [address] PCP - General Internal Medicine 02/06/21 documented as of this encounter Additional Source Comments The information contained in this document represents components of the legal health record. It is not the complete legal health record.[facility]
--- NOTE | 2025-03-24 07:59 | MHC.OFFVIS ---
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 Currently not sexually active. Denies any vaginal dryness or irritation. STI testing offered; she declined. Attempting to eat a healthy diet with calcium and vitamin D and stays active with exercise. Last pap smear; 2020, negative. Last mammogram; 2024. Colonoscopy is UTD. Family history of breast cancer. 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 Sexual orientation: Straight/Heterosexual Gender identity: Female Cognitive needs: No Hearing needs: No Vision needs: No Female Reproductive History Menstrual Age of Menarche: 16 Total pregnancies: 2 Full term: 2 Number of Living Children: 2 Date of last pap smear: 09/22/20 Date of Mammogram: 07/03/24 Review of Systems Const All systems reviewed & are unremarkable except as noted in HPI and below Reports as per HPI Eyes Reports no additional complaints ENT Reports no additional complaints Card Reports no additional complaints Resp Reports no additional complaints GI Reports as per HPI and Reports no additional complaints Reports as per HPI Musc Reports no additional complaints Skin/Breast Reports as per HPI Neuro Reports no additional complaints Psych Reports no additional complaints Endo Reports no additional complaints Iglesia/Lymph Reports no additional complaints Aller/Immun Reports no additional complaints Physical Exam Vital Signs: BMI result Body Mass Index 22.0 Const General: cooperative, healthy appearing, no acute distress, well developed and alert Orientation/consciousness: patient oriented x3 HEENT Head: Yes normal to inspection Eyes General: appearance normal, both eyes and all related structures Neck Neck: Yes normal visual inspection Thyroid: Thyroid normal Chest Chest palpation & inspection: normal inspection of the chest and other (no puckering, dimpling, peau de orange, retraction, discharge, masses) Breast/axilla inspection: normal inspection of the breasts Breast/axilla palpation: normal palpation of the breasts Resp Effort & Inspection: normal respiratory effort GI Inspection: Yes normal to inspection Palpation (GI): Soft to palpation Rectal Exam - Female: deferred General: Yes bladder normal to palpation External Female Exam: normal external appearance and normal appearance of the urethra Speculum Exam - Vagina: normal appearance of the vagina, normal palpation, normal vaginal discharge and vagina atrophic Speculum Exam - Cervix: normal appearance of the cervix and normal palpation Bimanual exam- vagina & uterus: normal bimanual exam, normal palpation, uterine size normal, bladder normal to palpation, normal palpation and non-tender Bimanual Exam- Adnexa, other: no masses Skin General skin exam: no rashes or lesions noted Rashes: no rashes Neuro General: patient oriented x3 Cognition (Neuro): normal cognition Extrem General: Yes normal to inspection Psych Attitude: cooperative Thought process: Normal thought process present Assessment & Plan Assessment & Plan (1) Encounter for well woman exam with routine gynecological exam: Code(s): Z01.419 - Encounter for gynecological examination (general) (routine) without abnormal findings Category: Medical Plan Discussed: Current recommendations for pap smears per ASCCP guidelines. Breast awareness, periodic self breast exams and yearly mammogram. Maintain a healthy lifestyle, well balanced diet including Calcium 1,200 mg and Vitamin D 600 IU daily, and routine exercise. Replens moisturizer, estrogen therapy for vaginal dryness and pain options. Discuss with sister if she was tested for BRCA gene, if interested can refer for testing. Contact the office with any postmenopausal bleeding. Patient verbalizes understanding and agrees to the plan of care. She was given opportunity to ask questions and all questions were answered to the best of my ability. RTO in 1 year for annual asl interpreter exam. This note is constructed using voice recognition software. While every effort has been made to ensure accuracy, metallurgical lab technician errors may have been included. Coding Level of Care Code Est Pt Prev Care 40-64y(35263) Diagnoses Encounter for well woman exam with routine gynecological exam Z01.419
[2025-03-24 08:03] VITALS: BP 110/62; BMI 22.0
--- OUTSIDE RECORDS SUMMARY | 2025-03-24 08:03 | XMS_ITS | Clinical Summary ---
Author Organization [facility] Address [address] [place], [place] [id number] Phone Care Team Providers Care Programmer Or Analyst Name Role Phone Krys Montoya MD Primary Care Provider [phone] Allergies Active Allergy Reactions Criticality Noted Date Comments Amoxicillin 02/06/2021 Celecoxib 02/06/2021 Cephalosporins Hives 11/15/2024 Macadamia Nut 02/06/2021 Penicillin 11/15/2024 Medications folic acid (FOLVITE) 1 MG tablet Take 1,000 mcg by mouth daily. 1 Active levothyroxine (SYNTHROID, LEVOTHROID) 88 MCG tablet Take 88 mcg by mouth every morning. 1 Active methotrexate 2.5 MG Oral tablet 1 Active XELJANZ XR 11 mg Tb24 1 Active valACYclovir (VALTREX) 500 MG tablet Take 1 tablet by mouth every morning. 3 Active predniSONE (DELTASONE) 5 MG tablet PLEASE SEE ATTACHED FOR DETAILED DIRECTIONS 3 Active inhaler spacing device (AEROCHAMBER,BR EATHERITE) Spcr Inhale 1 each into the lungs every 4 (four) hours as needed. 1 each 3 Active albuterol (PROAIR HFA) 90 mcg/actuation inhaler Inhale 2 puffs into the lungs every 4 (four) hours as needed for wheezing. 18 g 5 Active Active Problems No known active problems Immunizations Immunization Administration Dates Next Due Influenza Quadrivalent MDCK Preservative Free IM 03/09/2019 Influenza Quadrivalent MDCK w/Preservative IM 03/27/2022 Influenza Quadrivalent Prese rvative Free IM 04/12/2021,03/03/2020,03/14/2018,2014 Tdap 12/01/2021 Social History Tobacco Use Types Packs/Day Years Used Date Smoking Tobacco: Never Smokeless Tobacco: Never Tobacco Cessation:Counseling Given: Not Answered Alcohol Use Standard Drinks/Week Comments Yes 2 [...] on file Sexual Orientation Not on file Last Filed Vital Signs Vital Sign Reading Time Taken Comments Blood Pressure 117/77 11/15/2024 10:16 AM EDT Pulse 110 11/15/2024 10:16 AM EDT Temperature 36.6 C (97.8 F) 11/15/2024 10:16 AM EDT Respiratory Rate 16 11/15/2024 10:16 AM EDT Oxygen Saturation 97% 11/15/2024 10:16 AM EDT Inhaled Oxygen Concentration - - Weight 57.6 kg (127 lb) 11/15/2024 10:16 AM EDT Height 165.1 cm (5' 5 ) 11/15/2024 10:16 AM EDT Body Mass Index 21.13 11/15/2024 10:16 AM EDT Plan of Treatment Health Maintenance Due Date Last Done Comments LIPID PANEL 1961 TSH LEVEL 1961 DEPRESSION SCREENING 1973 HEPATITIS C SCREENING 1979 HIV ONE-TIME SCREENING (18-65 YEARS) 1979 PNEUMOCOCCAL VACCINES (50+ years) (1 of 2 - PCV) 1980 ZOSTER VACCINES (1 of 2) 1980 PAP SMEAR 1982 MAMMOGRAM 2001 COLOGUARD 2006 COLONOSCOPY 2006 COLORECTAL CANCER SCREENING 2006 FIT TEST 2006 FOBT 2006 SIGMOIDOSCOPY 2006 VIRTUAL COLONOSCOPY 2006 RSV VACCINE (1 - Risk 50-74 years 1-dose series) 2011 INFLUENZA VACCINE (#1) 2025 , 03/07/2023, 03/27/2022, Additional history exists COVID-19 VACCINE (2024- season) 2025 04/25/2024, 03/07/2023, 06/21/2021, Additional history exists Adult Td,Tdap Booster 12/02/2031 12/01/2021 SMOKING STATUS SCREENING (Once After 26 Yrs) Completed 11/15/2024 HEPATITIS A VACCINES Aged Out No long er eligible based on patient's age to complete this topic HIB VACCINES Aged Out No longer eligi ble based on patient's age to complete this topic MENINGOCOCCAL VACCINES (ACWY) Aged Out No longer eligible based on patient's age to complete this topic MENINGOCOCCAL VACCINES (B) Aged Out N o longer eligible based on patient's age to complete this topic Medical Devices Not on file Insurance HMO [facility] Care Teams Programmer Or Analyst Relationship Specialty Start Date End Date Krys Montoya MD [address] [place] [id number] PCP - General Internal Medicine 02/06/21 Additional Source Comments The information contained in this document represents components of the legal health record. It is not the complete legal health record.[facility]
--- OUTSIDE RECORDS SUMMARY | 2025-03-24 08:03 | XMS_ITS | Patient Health Record ---
Author Organization [facility] Address [address] [place] [id number] Care Team Providers Care Dba Name Role Phone Jan J[facility] Primary [facility] Provider Massimo Kramer [phone] Allergies Allergen (clinical drug ingredient) Drug/Non Drug Allergy documented on EMR Reaction Allergy Type Onset Date Status celecoxib Celebrex Unknown Drug Allergy Active amoxicillin Amoxicillin Unknown Drug Allergy Act scott seasonal allergies (uncoded) Unknown Allergy Active pitted fruit (uncoded) Unknown Allergy Active Reason For Referral No Information Medications Medication SIG (Take, Route, Frequency, Duration) Notes Start Date End Date Status Methotrexate 2.5 MG TAKE 8 TABLETS BY MO UTH ONCE WEEKLY Oral once per week Active Levothyroxine Sodium 100 MCG TAKE 1 TABLET BY MOUTH EVERY DAY Oral for 90 Active Folic Acid 1 MG TAKE 1 TABLET BY SAMARA TH EVERY DAY Oral for 90 Active Albuterol Sulfate (2.5 MG/3ML) 0.083% 3 ml as needed Inhalation every 6 hrs Active Humira 40 MG/0.4ML 0.4 ml Subcutaneous twice a month Active Immunizations Vaccine Route Administration Date Status Comme nts Influenza Unknown 03/17/2019 Administered Social History Tobacco Use: Social History Observation Description Date Details (start date - stop date) Never Smoker NA - NA Tobacco Use/Smoking Question Answer Notes Patient is a nonsmoker Alcohol Screen Question Answer Notes Did you have a drink contain ing alcohol in the past year? Yes How often did you have a dri nk containing alcohol in the past year? Monthly or less (1 point) How many drinks did you have on a typical day when you were drinking in the past year? 1 or 2 drinks (0 point) How often did you have 6 or more drinks on one occasion in the past year? Never (0 point) Points 1 Interpretation Negative Section Notes: Nonsmoker, no sig alcohol Problems Problem Type SNOMED Code ICD Code Onset Dates Problem Status W/U Status Risk Notes Problem 086089288 Encounter for screening for malignant neoplasm of colon (Z12.11) Active confirmed Problem 29664504 Constipation, unspecified constipation type (K59.00) Active confirmed Problem [id number] Pre-procedural examination (Z01.818) Active confirmed Encounters Encounter Location Date Provider Diagnosis [facility] [address] [place] [address] 07/08/2024 Massimo Titus Plan Of Treatment Future Test Test Name Order Date COLONOSCOPY 11/19/2019 Insurance Providers Payer Name Payer Address Payer Phone Subscriber Number Group Number Insured Name Patient Relationship to Insured Coverage Start Date Coverage End Date [facility] [address] [place] [phone] [id number] JASON MARTINES Self - patient is the insured Medical (General) History Medical History History ICD Code Rheumatoid arthritis Asthma Denies [place],DM,CVA,Lung disease,renal dise ase Hypothyroidism Neg. colonoscopy in 12/2009 e xcept hyperplastic polyp and internal hemorrhoids Surgical History Surgery Date(Month/Year) Bladder suspension
== END 2025-03-24 08:22 | disposition home or self-care (01) ==
LOC: HO.HWS 07:57
PROVIDERS: PCP Internal Medicine; Visit Provider Advanced Practice Midwife
DX: Z01.419 Encounter for gynecological examination (general) (routine) without abnormal findings (principal)
CPT/HCPCS: 99396; 99459